=== PATIENT | female | born 1975 | race Caucasian/White ===

== ENCOUNTER → 2025-06-18 | Outpatient (CLI) | payer OTHER ==
[~2025-06-18] MED LIST: ACET650T61 PO; CIPR500T3 PO
== END ==
LOC: M RAD 07:26
PROVIDERS: ATTEND Orthopaedic Surgery Hand Surgery
DX: M25.562 Pain in left knee (principal); G89.29 Other chronic pain; M94.262 Chondromalacia, left knee; M25.462 Effusion, left knee; M71.22 Synovial cyst of popliteal space [Baker], left knee